=== PATIENT | male | born 1970 | race Caucasian/White ===

== ENCOUNTER → 2022-08-19 | Day surgery (SDC) | payer OTHER ==
[~2022-08-19] MED LIST: AMLODIPINE BESYL5 MG PO; BASAGLAR K100 UNIT/1 SC; COREG3.125 MG PO; GLIMEPIRIDE2 MG PO; JARDIANCE25 MG PO; LIPITOR10 MG PO; LOSARTAN POTAS100 MG PO; METFORMIN HCL500 MG PO; POTASSIUM PO; PROPOFOL IV EMULSION 10 MG/ML 20 ML VIAL ONE; TRULICITY0.75 MG/0. SC
[2022-08-19 11:34] VITALS: BP 149/80
== END | disposition home or self-care (01) ==
LOC: OR 09:09
PROVIDERS: ATTEND Internal Medicine Gastroenterology
DX: Z12.11 Encounter for screening for malignant neoplasm of colon (principal); D12.2 Benign neoplasm of ascending colon; D12.3 Benign neoplasm of transverse colon; D12.4 Benign neoplasm of descending colon; R19.4 Change in bowel habit; K57.30 Diverticulosis of large intestine without perforation or abscess without bleeding; K64.8 Other hemorrhoids; G47.30 Sleep apnea, unspecified; E11.9 Type 2 diabetes mellitus without complications; I10 Essential (primary) hypertension; I49.9 Cardiac arrhythmia, unspecified; Z79.4 Long term (current) use of insulin; Z79.899 Other long term (current) drug therapy; Z68.43 Body mass index [BMI] 50.0-59.9, adult; Z86.73 Personal history of transient ischemic attack (TIA), and cerebral infarction without residual deficits; Z80.0 Family history of malignant neoplasm of digestive organs
CPT/HCPCS: 36415; 45384; 45385; 82948; 93005; J2704; 45378; 45380